=== PATIENT | female | born 1965 ===

== ENCOUNTER 2017-01-05 09:59 | Day surgery (SDC) | payer MEDICAID ==
[2016-12-24 13:39] VITALS: BMI 41.0
[~2017-01-05 09:59] MED LIST: Bupivacaine HCl 0.5% PF (10 ml) Inj ONE; Lidocaine 2% Inj (20ml) ONE; ceFAZolin IV 1 gm in Dextrose 50 ML IVPB ONE
[2017-01-05] MEDS ORDERED: Propofol 10 mg/ml Inj (20 ML) ONE (11:45)
[2017-01-05] MEDS ORDERED: Lactated Ringer's 1,000 ML IV ONE (11:45)
[2017-01-05] MEDS ORDERED: Midazolam 2 MG/2 ML VIAL ONE (11:45)
[2017-01-05] MEDS ORDERED: Bupivacaine HCl 0.5% PF (10 ml) Inj ONE (13:03)
--- NOTE | 2017-01-05 13:22 | PCM.SURG1 ---
Surgeon's Initial Post Op Note - Surgeon's Notes Surgeon: Diana LAND Field Radio Technician: Tashia PGY3 Type of Anesthesia: IV Sedation, None Pre-Operative Diagnosis: Right foot: 1) Second digit hammertoe deformity. 2) Bunion deformity. 3) Plantar fasciitis Operative Findings: See dictation Post-Operative Diagnosis: SAME Operation Performed: Right: 1) PIPJ arthroplasty 2nd digit. 2) Dean bunionectomy. 3) plantar fasciotomy Specimen/Specimens Removed: Bone Estimated Blood Loss: EBL {In ML}: 3 Blood Products Given: N/A Drains Used: No Drains Post-Op Condition: Good Date of Surgery/Procedure: 01/05/17 Time of Surgery/Procedure: 11:00
--- NOTE | 2017-01-05 13:22 | CP.PCM.PN ---
Subjective - Date & Time of Evaluation Date of Evaluation: 01/05/17 Time of Evaluation: 11:00
[2017-01-05] MEDS ORDERED: Oxycodone/Acetaminophen 5/325 mg Tab PO PRN (13:23)
[2017-01-05] MEDS ORDERED: HYDROmorphone 0.5 mg/0.5 ml ISec IVP PRN (13:29)
[2017-01-05] MEDS ORDERED: Lactated Ringer's 1,000 ML IV SCH (13:30)
--- NOTE | 2017-01-05 14:16 | RAD ---
PROCEDURE: Right Foot Radiographs. HISTORY: s/p right foot surgery COMPARISON: 02/17/2015 FINDINGS: BONES: Status post bunionectomy. There is mild surgical deformity in the medial head of the 1st metatarsal. There is no acute fracture or bone destruction. There is a large plantar calcaneal spur. JOINTS: Normal. SOFT TISSUES: There is periarticular soft tissue swelling and soft tissue emphysema in keeping with recent surgery. OTHER FINDINGS: None. IMPRESSION: Status post bunionectomy, expected postsurgical changes at the 1st MTP joint.
[2017-01-05 16:34] VITALS: BP 125/75; PULSE 72; RESP 16; TEMP 97.8; O2SAT 96
--- NOTE | 2017-01-07 11:24 | OP ---
PROCEDURE DATE: 01/05/2017 SURGEON: Niko Ortiz DPM FASHION ADVISER: Nori Martínez, PGY-3 ANESTHESIA: IV sedation with local anesthesia. PREOPERATIVE DIAGNOSES: 1. Hammertoe deformity, second digit, right foot. 2. Bunion deformity, right foot. 3. Painful plantar fasciitis, right foot. POSTOPERATIVE DIAGNOSES: 1. Hammertoe deformity, second digit, right foot. 2. Bunion deformity, right foot. 3. Painful plantar fasciitis, right foot. PROCEDURES: 1. PIPJ arthroplasty, second digit, right foot. 2. Preston bunionectomy, right foot. 3. Plantar fasciotomy, right foot. INDICATIONS: The patient is a 51-year-old female with the above-mentioned diagnosis. The patient lima s exhausted all conservative treatment at this time and is now requesting surgical intervention. The patient signed the consent after careful explanation of all risks, benefits, complications and alter natives for surgical procedure. No guarantees were given nor implied. PREPARATION: The patient was brought to the operating room, placed on the operating room table in th e supine position. A well-padded pneumatic ankle tourniquet was applied to patient's right ankle in a supramalleolar position. After induction of IV sedation, the patient received a total of 20 mL of a 1:1 mixture of 0.5% Marcaine plain and 1% lidocaine plain in local block fashion to the medial plan clerk secretary as well as to the patient's first metatarsal and second digit. Once local anesthesia was ac hieved, the patient's right lower extremity was then prepped and draped in usual sterile manner. At this time, the patient's right lower extremity was exsanguinated with Esmarch and pneumatic ankle brit rniquet inflated to 250 mmHg and the procedure began. PROCEDURE #1: PIPJ arthroplasty, second digit, right foot. Attention was directed to the dorsal asp ect of the patient's second proximal interphalangeal joint. A 2 cm linear longitudinal incision was created overlying the patient's PIPJ. The incision was deepened through subcutaneous tissue with car e being taken to identify and retract all vital neurovascular structures. All bleeders were cauteriz ed and ligated as necessary. At this time, a transverse tenotomy and capsulotomy was performed at th e proximal interphalangeal joint of the second digit. At this time, the head of the proximal phalanx was carefully resected free of its soft tissue attachments and brought into the operative field. Ut ilizing a sagittal saw, the head of the proximal phalanx was resected and passed from the operative f ield. All rough edges were then smoothed with a rasp. The incision site was then flushed with copio us amounts of normal sterile saline. The tendon was reapproximated and coapted utilizing 4-0 Vicryl and the skin was reapproximated and coapted utilizing 4-0 nylon simple suture technique. PROCEDURE #2: Preston procedure, right foot. Attention was directed to the dorsal aspect of the pat ient's first metatarsophalangeal joint. Utilizing a #15 blade, a 6 cm linear longitudinal incision w as created overlying the first metatarsophalangeal joint and was made parallel to the extensor, was m jessy medial and parallel to the tendon of the extensor hallucis longus and involving the contour of th e deformity. The incision was deepened through subcutaneous tissue with care being taken to identify and retract all vital neurovascular structures. All bleeders were cauterized and ligated as necessa ry. At this time, utilizing a #15 blade, an L-type capsulotomy was created at the level of the first metatarsophalangeal joint. Utilizing sharp and blunt dissection, the periosteal and capsular tissue s were carefully dissected free of their osseous attachments and reflected medially and laterally, ex posing the head of the first metatarsal into the operative site. At this time, utilizing an oscillat ing bone saw, the medial and dorsal prominences were carefully resected utilizing a sagittal saw and passed from the operative field. All rough edges were smoothed with a bone rasp. The incision site was then flushed with copious amounts of normal sterile saline. Periosteal and capsular structures w ere then reapproximated and coapted utilizing 3-0 and 2-0 Vicryl. The subcutaneous tissue was reappr oximated and coapted utilizing 4-0 Vicryl and the skin was reapproximated and coapted utilizing 4-0 n ylon in simple suture technique. PROCEDURE #3: Plantar fasciotomy, right foot. Attention was directed to the medial aspect of the pa tienuria's right plantar heel. Utilizing a measuring tape, it was measured from the posterior aspect of the patient's heel 5 cm distally and from plantar to 2 cm proximally. It is at this level that a 1 cm linear longitudinal incision was created. The incision was deepened through subcutaneous tissue w ith care being taken to identify and retract all vital neurovascular structures. All bleeders were c auterized and ligated as necessary. At this time, a Hernandez elevator was introduced into the incision site and was used to palpate the medial band of the plantar fascia. Next, an 11 blade was introduced into the incision site and with the foot held in maximal dorsiflexion, the medial band of the planta r fascia was transected in its entirety. The incision was then flushed with copious amounts of emilie l sterile saline. The incision was then reapproximated and coapted utilizing 4-0 nylon in simple sut ure technique. All incision sites were then dressed with Betadine-soaked Adaptic. The patient recei dannielle a postoperative injection of 10 mL of 0.5% Marcaine plain in local block fashion to all incision areas. POSTOPERATIVE CONDITION: The patient tolerated the procedure and anesthesia well and was escorted to recovery with all vital signs stable and neurovascular status intact to the patient's right lower ex tremity. It is to be noted that the patient will be full weightbearing in a Cam boot and will follow up with Dr. Ortiz in his office in 1 week. Nori Martínez DPM Niko Ortiz DPM cc: [id number] TT: 01/07/2017 11:24:23 [email or web address]
== END 2017-01-05 16:00 | disposition home or self-care (01) ==
LOC: C.SDS 09:59
PROVIDERS: ATTEND Podiatrist Foot & Ankle Surgery
DX: M20.41 Other hammer toe(s) (acquired), right foot (principal); M21.611 Bunion of right foot; M72.2 Plantar fascial fibromatosis; I10 Essential (primary) hypertension; J45.909 Unspecified asthma, uncomplicated
CPT/HCPCS: 28008; 28285; 28292; 73620; 88305; J0690; J1100; J2250; J2704; J3010; J7120